=== PATIENT | female | born 1960 | race Caucasian/White ===

== ENCOUNTER 2018-07-11 09:40 | Emergency (ER) | payer MEDICAID, OTHER ==
[~2018-07-11] VITALS: Ht 160 cm; Wt 53.5 kg
[2018-07-11 09:57] VITALS: BP 139/80
[2018-07-11] MEDS: ALBUTEROL SULF 2.5 MG/0.5ML(0.5%) NEB SOLN NEB ONE (10:15)
[2018-07-11] MEDS: IPRATROPIUM BROM 0.5 MG/2.5ML INH SOL NEB ONE (10:15)
== END 2018-07-11 10:30 | disposition home or self-care (01) ==
LOC: ER 09:47
DX: R06.00 Dyspnea, unspecified (principal)
CPT/HCPCS: 94640; 99283; J7611; J7644

== ENCOUNTER 2021-11-18 10:36 | Emergency (ER) | payer MEDICAID ==
[~2021-11-18] VITALS: Ht 160 cm; Wt 68.2 kg
[2021-11-18 11:20] VITALS: BP 162/83
[2021-11-18] MEDS ORDERED: PRED20TA2 PO (12:24)
[2021-11-18] MEDS ORDERED: LEVO500T31 PO (12:24)
[2021-11-18] MEDS ORDERED: PROM1SOL4 PO (12:24)
== END 2021-11-18 12:44 | disposition home or self-care (01) ==
LOC: ER 10:36
DX: J20.9 Acute bronchitis, unspecified (principal); J44.9 Chronic obstructive pulmonary disease, unspecified; I10 Essential (primary) hypertension
CPT/HCPCS: 71046

== ENCOUNTER 2022-08-20 10:52 | Emergency (ER) | payer MEDICAID ==
[~2022-08-20] VITALS: Ht 160 cm; Wt 65.0 kg
[~2022-08-20 10:52] MED LIST: LEVO500T31 PO; PRED20TA2 PO; PROM1SOL4 PO
[2022-08-20 11:34] VITALS: BP 142/80
[2022-08-20] MEDS ORDERED: IBUP-1456 PO (11:59)
== END 2022-08-20 12:15 | disposition home or self-care (01) ==
LOC: ER 10:52
DX: M21.612 Bunion of left foot (principal); M21.611 Bunion of right foot; J44.9 Chronic obstructive pulmonary disease, unspecified; I10 Essential (primary) hypertension; Z88.6 Allergy status to analgesic agent

== ENCOUNTER 2023-04-10 10:07 | Emergency (ER) | payer MEDICAID ==
[~2023-04-10] VITALS: Ht 160 cm; Wt 66.7 kg
[~2023-04-10 10:07] MED LIST changes: +IBUP-1456 PO
[2023-04-10 11:51] VITALS: BP 166/98; PULSE 87; RESP 18; TEMP 98.1; O2SAT 98
[2023-04-10] MEDS ORDERED: ALBUAER3 IN (12:18)
== END 2023-04-10 12:30 | disposition home or self-care (01) ==
LOC: ER 10:07
DX: I10 Essential (primary) hypertension (principal); J44.9 Chronic obstructive pulmonary disease, unspecified; Z76.0 Encounter for issue of repeat prescription; Z88.6 Allergy status to analgesic agent